=== PATIENT | female | born 1950 | race Caucasian/White ===

== ENCOUNTER → 2023-05-31 12:09 | Outpatient (REF) | payer MEDICARE, OTHER, SELFPAY | LOC: HWRAD 12:09 | PROVIDERS: ATTENDING PHYSICIAN Internal Medicine Rheumatology; FAMILY PHYSICIAN Family Medicine | DX: M25.50 Pain in unspecified joint (principal); M79.643 Pain in unspecified hand | CPT/HCPCS: 73110; 73130 ==